=== PATIENT | male | born 1990 | race Caucasian/White ===

== ENCOUNTER 2019-03-16 07:38 | Emergency (ER) | payer MEDICAID ==
[~2019-03-16] VITALS: Ht 177.8 cm; Wt 97.5 kg
[2019-03-16 07:38] VITALS: BP_SYST 107
[2019-03-16] MEDS ORDERED: traMADol HCL HCL 50 MG TABLET (ULTRAM) PO ONE (08:15)
[2019-03-16] MEDS ORDERED: ONDANSETRON 4 MG ODT TAB PO ONE (08:15)
[2019-03-16] MEDS ORDERED: KETOROLAC TROMETHAMINE 60 MG/2 ML VIAL IM ONE (08:15)
[2019-03-16] MEDS ORDERED: IBUPROFEN 800 MG TABLET PO ONE (08:15)
[2019-03-16] MEDS ORDERED: cefTRIAXone 1 GM in LIDOCAINE 1%, 20 ML MDV 2.1 ML IM ONE (08:15)
[2019-03-16 08:40] VITALS: BP_SYST 107
== END 2019-03-16 08:40 | disposition home or self-care (01) ==
LOC: SED 07:38
DX: L03.116 Cellulitis of left lower limb (principal); L05.91 Pilonidal cyst without abscess; M25.572 Pain in left ankle and joints of left foot
CPT/HCPCS: 29515; 73610; 96374; 99284; J0696; J2001; Q0162

== ENCOUNTER 2019-03-20 11:23 | Emergency (ER) | payer MEDICAID ==
[~2019-03-20] VITALS: Ht 177.8 cm; Wt 97.5 kg
[2019-03-20 11:32] VITALS: BP_SYST 104
--- NOTE | 2019-03-20 11:38 | NUR ---
Patient to ER bed 6 to gown for evaluation. Side rails up. Report given to Rasheed DE LA FUENTE.
--- NOTE | 2019-03-20 11:39 | NUR ---
Patient is awake, alert, and oriented x4. Patient is complaining that antibiotics are not working after a week and that his cellulitis has gotten worse. Patient presents with left foot pitting edema 2+, states pain is under control with tramadol.
[2019-03-20] MEDS ORDERED: NACL 0.9% 1,000 ML IV ONE (11:44)
[2019-03-20] MEDS ORDERED: NS 1000 ML IV.SOLN IV ONE (11:45)
[2019-03-20 12:18] LABS: BASOPHILS # (AUTO) 0.1 K/uL (0.0-0.2); EOSINOPHILS # (AUTO) 0.2 K/uL (0.0-0.4); EOSINOPHILS % (AUTO) 3.7 % (0.0-4.0); HEMATOCRIT 47.8 % (36-54); LYMPHOCYTES # (AUTO) 2.5 K/uL (1.0-5.5); LYMPHOCYTES % (AUTO) 39.8 % (20.5-51.5); MEAN CORPUSCULAR HEMOGLOBIN 29 pg (27-31); MEAN CORPUSCULAR HGB CONC 34 % (32-36); MEAN CORPUSCULAR VOLUME 87 fL (79.0-98.0); MONOCYTES # (AUTO) 0.5 K/uL (0.0-1.0); MONOCYTES % (AUTO) 7.7 % (1.7-9.3); NEUTROPHILS % (AUTO) 47.8 % (40.0-70.0); RED BLOOD CELL COUNT(AUTO) 5.48 MIL/uL (4.2-6.2); RED CELL DISTRIBUTION WIDTH 12.4 % (9.0-15.0); WHITE BLOOD COUNT (AUTO) 6.2 K/uL (4.8-10.8)
[2019-03-20 12:33] LABS: PLATELET COUNT (AUTO) 158 K/uL (130-430)
[2019-03-20 12:35] LABS: CALCIUM 9.3 mg/dL (8.4-11.0); CREATININE 1.31 mg/dL (0.55-1.30); POTASSIUM 3.9 mmol/L (3.5-5.1)
[2019-03-20 12:38] LABS: INR 1.1 (0.80-1.20); PROTHROMBIN TIME 10.8 SECS (9.5-12.5)
[2019-03-20 12:39] LABS: ALBUMIN 4.1 g/dL (3.4-4.8); TOTAL BILIRUBIN 0.4 mg/dL (0.0-1.0)
[2019-03-20] MEDS ORDERED: cefTRIAXone 1 GM IVPB PREMIX 50 ML IV ONE (12:45)
--- NOTE | 2019-03-20 13:34 | NUR ---
Patient given written and verbal discharge instructions and verbalizes understanding. ER MD discussed with patient the results and treatment provided. Patient in stable condition. ID arm band removed. No new Rx given, pt will continue Keflex and Bactrim. Patient educated on pain management and to follow up with PMD. Pain Scale 3/10. Opportunity for questions provided and answered. Medication side effect fact sheet provided.
[2019-03-20 13:36] VITALS: BP_SYST 117
[2019-03-20 13:40] LABS: BILIRUBIN,URINE NEGATIVE (NEGATIVE); BLOOD, URINE NEGATIVE (NEGATIVE); CLARITY/URINE CLEAR (CLEAR); COLOR,URINE YELLOW (YELLOW); GLUCOSE,URINE NEGATIVE (NEGATIVE); KETONES,URINE NEGATIVE (NEGATIVE); LEUKOCYTE ESTERASE ,URINE NEGATIVE (NEGATIVE); NITRITE, URINE NEGATIVE (NEGATIVE); PROTEIN URINE NEGATIVE (NEGATIVE); UROBILINOGEN,URINE 0.2 (0.2-1.0)
== END 2019-03-20 13:36 | disposition home or self-care (01) ==
LOC: SED 11:23
DX: M79.672 Pain in left foot (principal)
CPT/HCPCS: 36415; 71045; 80053; 81000; 81003; 83605; 83690; 85025; 85610; 85730; 87040; 93971; 96365; 99284; J0696; J7030

== ENCOUNTER 2019-04-07 16:52 | Emergency (ER) | payer MEDICAID ==
[~2019-04-07] VITALS: Ht 177.8 cm; Wt 99.8 kg
[2019-04-07 16:58] VITALS: BP_SYST 114
--- NOTE | 2019-04-07 17:02 | NUR ---
AMBULATED TO BED 6
--- NOTE | 2019-04-07 17:15 | NUR ---
Pt came into ED 4 weeks ago and was diagnosed with cellulitis of the left lower leg near his ankle. Pt states that he was given antibiotics and took them as directed but is still having pain and swelling in the ankle. Pt states pain is 2/10. Upon visualization ankle is only slightly swollen, no pitting, no discoloration. Pt denies N/V/D. Pt denies SOB. Pt has no s/s of distress. Will continue to monitor.
--- NOTE | 2019-04-07 17:25 | NUR ---
ER Dr. Palacios at bedside examining patient.
[2019-04-07 18:02] VITALS: BP_SYST 114
--- NOTE | 2019-04-07 18:02 | NUR ---
Patient given written and verbal discharge instructions and verbalizes understanding. ER MD discussed with patient the results and treatment provided. Patient in stable condition. ID arm band removed. Rx of AUGMENTIN AND IBUPROFEN given. Patient educated on pain management and to follow up with PMD. Pain Scale 2/10. Opportunity for questions provided and answered. Medication side effect fact sheet provided.
== END 2019-04-07 18:02 | disposition home or self-care (01) ==
LOC: SED 16:52
DX: M25.572 Pain in left ankle and joints of left foot (principal); Z87.2 Personal history of diseases of the skin and subcutaneous tissue
CPT/HCPCS: 99283

== ENCOUNTER 2019-07-31 01:28 | Emergency (ER) | payer MEDICAID ==
[~2019-07-31] VITALS: Ht 175.3 cm; Wt 113.4 kg
[2019-07-31 01:37] VITALS: BP_SYST 118
[2019-07-31] MEDS ORDERED: NACL 0.9% 1,000 ML IV ONE (01:54)
[2019-07-31 02:14] LABS: BILIRUBIN,URINE NEGATIVE (NEGATIVE); BLOOD, URINE NEGATIVE (NEGATIVE); CLARITY/URINE CLEAR (CLEAR); COLOR,URINE YELLOW (YELLOW); GLUCOSE,URINE NEGATIVE (NEGATIVE); KETONES,URINE NEGATIVE (NEGATIVE); LEUKOCYTE ESTERASE ,URINE NEGATIVE (NEGATIVE); NITRITE, URINE NEGATIVE (NEGATIVE); PH,URINE 6.5 (5.0-8.0); PROTEIN URINE NEGATIVE (NEGATIVE); UROBILINOGEN,URINE 0.2 (0.2-1.0)
--- NOTE | 2019-07-31 02:48 | NUR ---
Pt placed to ER bed 04. Pt c/o fever and chills x 2 days. Pt states Tmax was 104 at 0000 tonight and he took Ibuprofen 400 mg at that time.
[2019-07-31 02:50] LABS: CREATININE 1.29 mg/dL (0.55-1.30); POTASSIUM 4.1 mmol/L (3.5-5.1)
--- NOTE | 2019-07-31 02:55 | NUR ---
Dr. Lara at bedside.
[2019-07-31 02:59] LABS: BASOPHILS # (AUTO) 0.1 K/uL (0.0-0.2); BASOPHILS % (AUTO) 1.1 % (0.0-2.0); EOSINOPHILS # (AUTO) 0.3 K/uL (0.0-0.4); HEMATOCRIT 45.2 % (36-54); HEMOGLOBIN 15.6 g/dL (14.0-18.0); LYMPHOCYTES # (AUTO) 0.8 K/uL (1.0-5.5); MEAN CORPUSCULAR HEMOGLOBIN 31 pg (27-31); MEAN CORPUSCULAR HGB CONC 35 % (32-36); MEAN CORPUSCULAR VOLUME 89 fL (79.0-98.0); MONOCYTES # (AUTO) 0.9 K/uL (0.0-1.0); MONOCYTES % (AUTO) 9.3 % (1.7-9.3); NEUTROPHILS # (AUTO) 7.2 K/uL (1.8-7.7); NEUTROPHILS % (AUTO) 77.6 % (40.0-70.0); PLATELET COUNT (AUTO) 119 K/uL (130-430); RED BLOOD CELL COUNT(AUTO) 5.08 MIL/uL (4.2-6.2); RED CELL DISTRIBUTION WIDTH 13.1 % (9.0-15.0); WHITE BLOOD COUNT (AUTO) 9.3 K/uL (4.8-10.8)
[2019-07-31 03:07] LABS: ALBUMIN 3.9 g/dL (3.4-4.8); TOTAL BILIRUBIN 0.3 mg/dL (0.0-1.0)
[2019-07-31] MEDS ORDERED: ACETAMINOPHEN 500 MG TABLET PO ONE (03:15)
[2019-07-31] MEDS ORDERED: IBUPROFEN 800 MG TABLET PO ONE (03:15)
[2019-07-31 03:16] LABS: INR 1.1 (0.80-1.20); PROTHROMBIN TIME 11.2 SECS (9.5-12.5)
--- NOTE | 2019-07-31 04:00 | NUR ---
Pt resting quietly with eyes closed. Respirations even and non-labored.
--- NOTE | 2019-07-31 05:05 | NUR ---
Temp 98.5. Pt c/o 5/10 H/A. Dr. Lara made aware.
[2019-07-31 06:30] VITALS: BP_SYST 122
--- NOTE | 2019-07-31 06:30 | NUR ---
Patient given written and verbal discharge instructions and verbalizes understanding. ER MD discussed with patient the results and treatment provided. Patient in stable condition. ID arm band removed. IV catheter removed intact and dressing applied, no active bleeding. Rx of Robitussin, Tylenol, Tamilflu given. Patient educated on pain management and to follow up with PMD. Pain Scale 0/10. Opportunity for questions provided and answered. Medication side effect fact sheet provided.
== END 2019-07-31 06:30 | disposition home or self-care (01) ==
LOC: SED 01:28
DX: J10.1 Influenza due to other identified influenza virus with other respiratory manifestations (principal); J40 Bronchitis, not specified as acute or chronic
CPT/HCPCS: 36415; 71045; 80053; 81003; 83690; 85025; 85610; 85730; 86710; 99284; J7030

== ENCOUNTER 2021-01-20 09:22 | Emergency (ER) | payer MEDICAID ==
[~2021-01-20] VITALS: Ht 177.8 cm; Wt 108.9 kg
[2021-01-20 09:30] VITALS: BP_SYST 133
[2021-01-20] MEDS ORDERED: IBUP-1969 PO (09:53)
[2021-01-20 09:56] VITALS: BP_SYST 130
[2021-01-20] MEDS ORDERED: IBUPROFEN 600 MG TABLET PO ONE (10:00)
== END 2021-01-20 09:56 | disposition home or self-care (01) ==
LOC: SED 09:22
DX: S40.021A Contusion of right upper arm, initial encounter (principal); M54.2 Cervicalgia; X50.0XXA Overexertion from strenuous movement or load, initial encounter; Y93.89 Activity, other specified; Y92.89 Other specified places as the place of occurrence of the external cause; Y99.8 Other external cause status
CPT/HCPCS: 99282

== ENCOUNTER 2021-10-19 19:03 | Emergency (ER) | payer MEDICAID ==
[~2021-10-19] VITALS: Ht 177.8 cm; Wt 96.6 kg
[2021-10-19 19:03] VITALS: BP_SYST 113
[~2021-10-19 19:03] MED LIST: IBUP-1969 PO
[2021-10-19 20:50] LABS: BASOPHILS # (AUTO) 0.1 K/uL (0.0-0.2); BASOPHILS % (AUTO) 0.5 % (0.0-2.0); EOSINOPHILS # (AUTO) 0.2 K/uL (0.0-0.4); EOSINOPHILS % (AUTO) 1.5 % (0.0-4.0); HEMATOCRIT 46.6 % (36-54); HEMOGLOBIN 15.5 g/dL (14.0-18.0); LYMPHOCYTES # (AUTO) 1.9 K/uL (1.0-5.5); LYMPHOCYTES % (AUTO) 16.9 % (20.5-51.5); MEAN CORPUSCULAR HEMOGLOBIN 29 pg (27-31); MEAN CORPUSCULAR HGB CONC 33 % (32-36); MEAN CORPUSCULAR VOLUME 87 fL (79.0-98.0); MONOCYTES # (AUTO) 0.6 K/uL (0.0-1.0); MONOCYTES % (AUTO) 4.9 % (1.7-9.3); NEUTROPHILS # (AUTO) 8.6 K/uL (1.8-7.7); NEUTROPHILS % (AUTO) 76.2 % (40.0-70.0); PLATELET COUNT (AUTO) 162 K/uL (130-430); RED BLOOD CELL COUNT(AUTO) 5.36 MIL/uL (4.2-6.2); RED CELL DISTRIBUTION WIDTH 13.4 % (9.0-15.0); WHITE BLOOD COUNT (AUTO) 11.3 K/uL (4.8-10.8)
[2021-10-19 20:54] LABS: ANION GAP 10 (5-15); CALCIUM 8.9 mg/dL (8.4-11.0); CHLORIDE 105 mmol/L (98-107); CREATININE 0.88 mg/dL (0.55-1.30); GLUCOSE 102 mg/dL (70-99); POTASSIUM 3.9 mmol/L (3.5-5.1); SODIUM SERUM 141 mmol/L (136-145); UREA NITROGEN, BLOOD 12 mg/dL (8-21)
[2021-10-19 20:55] LABS: GFR AFRICAN AMERICAN 132 mL/min (>90)
[2021-10-19 21:00] LABS: ALANINE AMINOTRANSFERASE 36 U/L (12-78); ASPARTATE AMINOTRANSFERASE 20 U/L (10-37); TOTAL BILIRUBIN 0.2 mg/dL (0.0-1.0)
[2021-10-19 21:01] LABS: ALCOHOL, BLOOD < 3 mg/dL (<10)
--- NOTE | 2021-10-19 22:20 | NUR ---
ALLAN Jordan examining patient.
[2021-10-20] MEDS ORDERED: ACET-2634 PO (00:05)
--- NOTE | 2021-10-20 00:30 | NUR ---
Patient discharged by ER MD. Home without discharge instructions.
== END 2021-10-20 00:30 | disposition home or self-care (01) ==
LOC: SED 19:03
DX: F41.0 Panic disorder [episodic paroxysmal anxiety] (principal); R51.9 Headache, unspecified; F17.210 Nicotine dependence, cigarettes, uncomplicated
CPT/HCPCS: 36415; 70450; 76376; 80053; 85025; 99284; G0482

== ENCOUNTER 2021-11-21 12:44 | Emergency (ER) | payer MEDICAID ==
[~2021-11-21] VITALS: Ht 177.8 cm; Wt 95.3 kg
[~2021-11-21 12:44] MED LIST changes: +ACET-2634 PO
[2021-11-21 13:03] VITALS: BP_SYST 136
[2021-11-21] MEDS ORDERED: KETOROLAC TROMETHAMINE 60 MG/2 ML VIAL IM ONE (13:30)
[2021-11-21 13:34] LABS: BILIRUBIN,URINE NEGATIVE (NEGATIVE); BLOOD, URINE NEGATIVE (NEGATIVE); CLARITY/URINE CLEAR (CLEAR); COLOR,URINE YELLOW (YELLOW); GLUCOSE,URINE NEGATIVE (NEGATIVE); KETONES,URINE NEGATIVE (NEGATIVE); LEUKOCYTE ESTERASE ,URINE NEGATIVE (NEGATIVE); NITRITE, URINE NEGATIVE (NEGATIVE); PH,URINE 5.5 (5.0-8.0); PROTEIN URINE NEGATIVE (NEGATIVE); UROBILINOGEN,URINE 0.2 (0.2-1.0)
[2021-11-21 13:43] LABS: BASOPHILS % (AUTO) 0.4 % (0.0-2.0); EOSINOPHILS # (AUTO) 0.3 K/uL (0.0-0.4); HEMATOCRIT 46.2 % (36-54); HEMOGLOBIN 15.5 g/dL (14.0-18.0); LYMPHOCYTES # (AUTO) 2.1 K/uL (1.0-5.5); LYMPHOCYTES % (AUTO) 24.7 % (20.5-51.5); MEAN CORPUSCULAR HEMOGLOBIN 29 pg (27-31); MEAN CORPUSCULAR HGB CONC 34 % (32-36); MEAN CORPUSCULAR VOLUME 88 fL (79.0-98.0); MONOCYTES # (AUTO) 0.5 K/uL (0.0-1.0); NEUTROPHILS # (AUTO) 5.7 K/uL (1.8-7.7); PLATELET COUNT (AUTO) 134 K/uL (130-430); RED BLOOD CELL COUNT(AUTO) 5.28 MIL/uL (4.2-6.2); WHITE BLOOD COUNT (AUTO) 8.6 K/uL (4.8-10.8)
[2021-11-21 14:23] LABS: ANION GAP 11 (5-15); CALCIUM 8.4 mg/dL (8.4-11.0); CHLORIDE 103 mmol/L (98-107); GLUCOSE 82 mg/dL (70-99); POTASSIUM 3.9 mmol/L (3.5-5.1); SODIUM SERUM 139 mmol/L (136-145); UREA NITROGEN, BLOOD 12 mg/dL (8-21)
[2021-11-21 14:24] LABS: GFR AFRICAN AMERICAN 102 mL/min (>90)
[2021-11-21 14:27] LABS: ALANINE AMINOTRANSFERASE 29 U/L (12-78); ALBUMIN 3.8 g/dL (3.4-4.8); AMYLASE 50 U/L (0-100); ASPARTATE AMINOTRANSFERASE 17 U/L (10-37); C-REACTIVE PROTEIN QUANT < 0.2 mg/dL (0-0.5); LIPASE 114 U/L (73-393); TOTAL BILIRUBIN 0.4 mg/dL (0.0-1.0)
[2021-11-21 14:59] LABS: NEUTROPHILS % (AUTO) 65.9 % (40.0-70.0)
[2021-11-21] MEDS ORDERED: IBUP-1969 PO (16:03)
[2021-11-21 16:22] VITALS: BP_SYST 136
== END 2021-11-21 16:23 | disposition home or self-care (01) ==
LOC: SED 12:44
DX: R10.9 Unspecified abdominal pain (principal)
CPT/HCPCS: 36415; 74176; 76376; 80053; 81003; 82150; 83605; 83690; 85025; 86140; 96372; 99284; J1885

== ENCOUNTER 2022-11-26 18:13 | Emergency (ER) | payer MEDICAID ==
[~2022-11-26] VITALS: Ht 177.8 cm; Wt 97.5 kg
[2022-11-26 18:20] VITALS: BP_SYST 121
--- NOTE | 2022-11-26 18:20 | NUR ---
Patient triaged and placed in waiting room. VSS and patient appears in no acute distress at this time. Accompanied by , awaiting available bed, and MD notified of need for MSE.
--- NOTE | 2022-11-26 18:28 | NUR ---
PT STATES RIGHT ANKLE PAIN, DENIES ANY INJURY, STATES SLIGHT SWELLING AND REDNESS.
[2022-11-26] MEDS ORDERED: KETOROLAC TROMETHAMINE 60 MG/2 ML VIAL IM ONE (19:00)
--- NOTE | 2022-11-26 21:05 | NUR ---
dr. blakely in triage examining patient
[2022-11-26] MEDS ORDERED: HYDR-3917 PO (21:15)
[2022-11-26] MEDS ORDERED: COLC0.6T67 PO (21:15)
[2022-11-26] MEDS ORDERED: IBUP-1969 PO (21:15)
[2022-11-26] MEDS ORDERED: ONDA-8 TL (21:15)
[2022-11-26] MEDS ORDERED: IBUPROFEN 600 MG TABLET PO ONE (21:15)
--- NOTE | 2022-11-26 21:27 | NUR ---
Patient taken to x-ray.
[2022-11-26 22:07] VITALS: BP_SYST 118
--- NOTE | 2022-11-26 22:08 | NUR ---
Patient given written and verbal discharge instructions and verbalizes understanding. ER MD discussed with patient the results and treatment provided. Patient in stable condition. ID arm band removed. Rx of NORCO, COLCHICINE, IBUPROFEN, AND ZOFRAN given. Patient educated on pain management and to follow up with PMD. Pain Scale 3/10. Opportunity for questions provided and answered. Medication side effect fact sheet provided.
== END 2022-11-26 22:07 | disposition home or self-care (01) ==
LOC: SED 18:13
DX: M10.071 Idiopathic gout, right ankle and foot (principal); M25.571 Pain in right ankle and joints of right foot; Z79.899 Other long term (current) drug therapy
CPT/HCPCS: 99283

== ENCOUNTER 2023-06-07 11:55 | Emergency (ER) | payer MEDICAID ==
[~2023-06-07] VITALS: Ht 177.8 cm; Wt 59.0 kg
[~2023-06-07 11:55] MED LIST changes: +AMOX-520 PO; +AMOX500C2 PO; +COLC0.6T67 PO; +HYDR-3917 PO; +ONDA-8 TL
[2023-06-07 12:49] VITALS: BP_SYST 127; PULSE 79; RESP 18; TEMP 98.3; O2SAT 96
[2023-06-07] MEDS ORDERED: KETOROLAC TROMETHAMINE 15 MG VIAL IVP ONE (13:15)
[2023-06-07] MEDS ORDERED: cefTRIAXone 1 GM IVPB PREMIX 50 ML IV ONE (13:15)
[2023-06-07 13:47] LABS: BASOPHILS # (AUTO) 0.1 K/uL (0.0-0.2); BASOPHILS % (AUTO) 0.4 % (0.0-2.0); EOSINOPHILS # (AUTO) 0.2 K/uL (0.0-0.4); EOSINOPHILS % (AUTO) 1.4 % (0.0-4.0); HEMATOCRIT 48.1 % (36-54); HEMOGLOBIN 15.8 g/dL (14.0-18.0); LYMPHOCYTES # (AUTO) 2.2 K/uL (1.0-5.5); LYMPHOCYTES % (AUTO) 18.8 % (20.5-51.5); MEAN CORPUSCULAR HEMOGLOBIN 30 pg (27-31); MEAN CORPUSCULAR HGB CONC 33 % (32-36); MEAN CORPUSCULAR VOLUME 90 fL (79.0-98.0); MONOCYTES # (AUTO) 0.8 K/uL (0.0-1.0); NEUTROPHILS # (AUTO) 8.3 K/uL (1.8-7.7); NEUTROPHILS % (AUTO) 72.4 % (40.0-70.0); PLATELET COUNT (AUTO) 153 K/uL (130-430); RED BLOOD CELL COUNT(AUTO) 5.35 MIL/uL (4.2-6.2); RED CELL DISTRIBUTION WIDTH 13.1 % (9.0-15.0); WHITE BLOOD COUNT (AUTO) 11.5 K/uL (4.8-10.8)
[2023-06-07] MEDS ORDERED: iohexoL 350 mgI/mL, 100 ML INFUS..BTL IV ONE (14:06)
[2023-06-07 14:34] LABS: CALCIUM 8.8 mg/dL (8.4-11.0); CREATININE 1.31 mg/dL (0.55-1.30); POTASSIUM 4.9 mmol/L (3.5-5.1)
[2023-06-07 15:06] LABS: BILIRUBIN,URINE NEGATIVE (NEGATIVE); BLOOD, URINE NEGATIVE (NEGATIVE); CLARITY/URINE Clear (CLEAR); COLOR,URINE YELLOW (YELLOW); GLUCOSE,URINE NEGATIVE (NEGATIVE); KETONES,URINE NEGATIVE (NEGATIVE); LEUKOCYTE ESTERASE ,URINE NEGATIVE (NEGATIVE); NITRITE, URINE NEGATIVE (NEGATIVE); PH,URINE 6.5 (5.0-8.0); PROTEIN URINE NEGATIVE (NEGATIVE); UROBILINOGEN,URINE 0.2 (0.2-1.0)
[2023-06-07] MEDS ORDERED: cefTRIAXone 1 GM VIAL IM ONE (17:00)
[2023-06-07] MEDS ORDERED: DOXYCYCLINE HYCLATE 100 MG CAPSULE PO ONE (17:00)
[2023-06-07] MEDS ORDERED: IBUPROFEN 800 MG TABLET PO ONE (17:00)
[2023-06-07] MEDS ORDERED: LIDOCAINE 1%, 20 ML MDV 20 ML ONE (17:01)
[2023-06-07] MEDS ORDERED: DOXY100T2 PO (17:07)
[2023-06-07] MEDS ORDERED: CEPH-548 PO (17:07)
[2023-06-07] MEDS ORDERED: IBUP-1971 PO (17:07)
[2023-06-07 17:28] VITALS: BP_SYST 132; PULSE 71; RESP 21; TEMP 97.4; O2SAT 100
== END 2023-06-07 17:28 | disposition home or self-care (01) ==
LOC: SED 11:55
DX: A64 Unspecified sexually transmitted disease (principal); R10.32 Left lower quadrant pain; Z79.899 Other long term (current) drug therapy
CPT/HCPCS: 99285; 96365; 72193; 96375; 86592; 86701; 86702; 80048; 85025; 36415; 76376; 96372; 87491; 81003; Q9967; J0696 ×2; J1885; J2001

== ENCOUNTER 2023-11-21 22:20 | Emergency (ER) | payer SELFPAY ==
[~2023-11-21] VITALS: Ht 177.8 cm; Wt 99.8 kg
[~2023-11-21 22:20] MED LIST changes: +CEPH-548 PO; +DOXY100T2 PO; +IBUP-1971 PO
[2023-11-21 22:39] VITALS: BP_SYST 137; PULSE 79; RESP 18; TEMP 97.8; O2SAT 97
[2023-11-21] MEDS: KETOROLAC TROMETHAMINE 30 MG VIAL IM ONE (23:09)
[2023-11-21] MEDS: predniSONE 20 MG TABLET PO ONE (23:09)
[2023-11-21] MEDS ORDERED: COLCHICINE 0.6 MG TABLET ONE (23:16)
[2023-11-21] MEDS: COLCHICINE 0.6 MG TABLET PO ONE (23:17)
[2023-11-21] MEDS ORDERED: NAPR-688 PO (23:23)
[2023-11-21] MEDS ORDERED: COLC0.6T67 PO (23:23)
[2023-11-21] MEDS ORDERED: PRED20TA PO (23:23)
[2023-11-21 23:37] VITALS: BP_SYST 134; PULSE 79; RESP 16; TEMP 99.1; O2SAT 99
== END 2023-11-21 23:37 | disposition home or self-care (01) ==
LOC: SED 22:20
DX: M10.9 Gout, unspecified (principal); M79.671 Pain in right foot; I10 Essential (primary) hypertension; Z79.899 Other long term (current) drug therapy
CPT/HCPCS: 99283; 96372; J7512; J1885

== ENCOUNTER 2023-11-24 22:08 | Emergency (ER) | payer SELFPAY ==
[~2023-11-24] VITALS: Ht 177.8 cm; Wt 99.8 kg
[~2023-11-24 22:08] MED LIST changes: +NAPR-688 PO; +PRED20TA PO
[2023-11-24 22:16] VITALS: BP_SYST 146; PULSE 76; RESP 20; TEMP 99; O2SAT 99
[2023-11-24] MEDS ORDERED: ALLO100T PO (22:44)
[2023-11-24] MEDS ORDERED: NAPR-690 PO (22:44)
[2023-11-24 22:48] VITALS: BP_SYST 146; PULSE 76; RESP 20; TEMP 99; O2SAT 99
== END 2023-11-24 22:48 | disposition home or self-care (01) ==
LOC: SED 22:08
DX: M10.9 Gout, unspecified (principal); R00.2 Palpitations; Z79.899 Other long term (current) drug therapy
CPT/HCPCS: 99283

== ENCOUNTER 2024-06-06 13:28 | Emergency (ER) | payer SELFPAY ==
[~2024-06-06] VITALS: Ht 177.8 cm; Wt 108.9 kg
[~2024-06-06 13:28] MED LIST changes: +ALLO100T PO; +NAPR-690 PO
[2024-06-06 13:35] VITALS: BP_SYST 138; PULSE 88; RESP 18; TEMP 98.3; O2SAT 96
[2024-06-06] MEDS: IBUPROFEN 800 MG TABLET PO ONE (14:48)
[2024-06-06] MEDS: LIDOCAINE PATCH 5% 1 EA TP ONE (14:48)
[2024-06-06] MEDS ORDERED: LIDO1ADH22 TP (14:51)
[2024-06-06 14:55] VITALS: BP_SYST 138; PULSE 88; RESP 18; TEMP 98.3; O2SAT 96
== END 2024-06-06 14:53 | disposition home or self-care (01) ==
LOC: SED 13:28
DX: S46.811A Strain of other muscles, fascia and tendons at shoulder and upper arm level, right arm, initial encounter (principal); Z79.899 Other long term (current) drug therapy; Z79.2 Long term (current) use of antibiotics; X50.0XXA Overexertion from strenuous movement or load, initial encounter; Y93.89 Activity, other specified; Y92.89 Other specified places as the place of occurrence of the external cause; Y99.8 Other external cause status
CPT/HCPCS: 73030; 99283